=== PATIENT | male | born 1985 | race Caucasian/White ===

== ENCOUNTER 2018-01-23 10:36 | Emergency (ER) | payer OTHER ==
[2018-01-23 10:48] VITALS: BP 133/84
--- NOTE | 2018-01-23 10:59 | ER Document Report ---
HPI - HPI Patient complains to provider of: Left hand injury Pain Level: 4 Context: Patient is a 33-year-old male complaining of pain to his left hand. Patient was getting out of his dump truck when he slipped and instinctively reached back to catch himself on the truck, striking the back of his left hand on the truck door. Patient has pain and swelling to the mid volar left hand. Pain with moving his left middle and ring fingers Associated Symptoms: None Exacerbated by: Movement Relieved by: Denies - ROS Systems Reviewed and Negative: Yes All other systems reviewed and negative Past Medical History - General Information source: Patient - Social History Smoking Status: Current Every Day Smoker Frequency of alcohol use: Social Drug Abuse: None Lives with: Alone Family History: Reviewed & Not Pertinent - Medical History Medical History: Negative Vertical Provider Document - CONSTITUTIONAL Agree With Documented VS: Yes Exam Limitations: No Limitations - INFECTION CONTROL TRAVEL OUTSIDE OF THE [place] IN LAST 30 DAYS: No - HEENT HEENT: Atraumatic, PERRLA - NECK Neck: Normal Inspection, Supple - RESPIRATORY Respiratory: Breath Sounds Normal, No Respiratory Distress - MUSCULOSKELETAL/EXTREMETIES Musculoskeletal/Extremeties: Tender - Left dorsal hand with focal tenderness and swelling. Abrasion to mid hand - NEURO Level of Consciousness: Awake, Alert, Appropriate Motor/Sensory: No Motor Deficit - DERM Integumentary: Warm, Dry Notes: Abrasion noted to left mid hand Course - Re-evaluation Re-evalutation: 01/23/18 11:12 X-rays negative for fracture. These results reviewed with patient. Wound cleansed and dressing applied. Christopher wrap applied after dressing. I estimate there is LOW risk for OPEN FRACTURE, COMPARTMENT SYNDROME, ACUTE TENDON RUPTURE, or NEUROVASCULAR INJURY thus I consider the discharge disposition reasonable. I have reevaluated this patient multiple times and no significant life threatening changes are noted. The patient and I have discussed the diagnosis and risks, and we agree with discharging home to closely follow-up with their primary doctor or the referral orthopedist with the understanding that symptoms and presentations can change. We also discussed returning to the Emergency Department immediately if new or worsening symptoms occur. We have discussed the symptoms which are most concerning (e.g., changing or worsening pain, numbness, weakness) that necessitate immediate return - Vital Signs Vital signs: Temp Pulse Resp BP Pulse Ox 98.6 F 87 16 133/84 H 97 01/23/18 10:47 01/23/18 10:47 01/23/18 10:47 01/23/18 10:47 01/23/18 10:47 Procedures - Immobilization Left hand Pre-Proc Neuro Vasc Exam: Normal Immobilizer type: Christopher wrap Performed by: PCT Post-Proc Neuro Vasc Exam: Normal Alignment checked and good: Yes Discharge - Discharge Clinical Impression: Contusion of left hand Qualifiers: Encounter type: initial encounter Qualified Code(s): S60.222A - Contusion of left hand, initial encounter Condition: Stable Disposition: HOME, SELF-CARE Instructions: Contusion ([facility]), Abrasions ([facility]), Soap Cleansing ([facility]), Antibiotic Ointment Protection ([facility]), Christopher Wrap ([facility]), Ice & Elevation ([facility]), Ibuprofen (General) ([facility]) Additional Instructions: Your x-rays negative for fracture. Keep the abrasion clean using antibacterial soap and water and antibiotic ointment protection Christopher ice and elevate the injured hand as much as possible Ibuprofen for swelling and discomfort Follow-up with your primary care if pain persists Return to ER for any worsening of your status Prescriptions: Ibuprofen [Motrin 800 Mg Tablet] 800 mg PO Q6H #20 tablet Forms: Return to Work
--- NOTE | 2018-01-23 11:22 | RADIOLOGY REPORT (SQ) ---
EXAM DESCRIPTION: HAND LEFT 3 VIEWS COMPLETED DATE/TIME: 01/23/2018 11:11 am REASON FOR STUDY: pain left hand, hit hand on dump truck door COMPARISON: None. EXAM PARAMETERS: NUMBER OF VIEWS: Three views. TECHNIQUE: AP, lateral and oblique radiographic images acquired of the left hand. LIMITATIONS: None. FINDINGS: MINERALIZATION: Normal. BONES: No acute fracture or dislocation. No worrisome bone lesions. JOINTS: No effusions. SOFT TISSUES: No soft tissue swelling. No foreign body. OTHER: No other significant finding. IMPRESSION: NEGATIVE STUDY OF THE LEFT HAND. NO RADIOGRAPHIC EVIDENCE OF ACUTE INJURY. TECHNICAL DOCUMENTATION: JOB ID: [id number] [employer]- All Rights Reserved Reading location - IP/workstation name: BEL
== END 2018-01-23 11:28 | disposition home or self-care (01) ==
LOC: ER 10:36
DX: S60.222A Contusion of left hand, initial encounter (principal); M79.642 Pain in left hand; W22.8XXA Striking against or struck by other objects, initial encounter; Y93.89 Activity, other specified; Y99.0 Civilian activity done for income or pay; F17.200 Nicotine dependence, unspecified, uncomplicated
CPT/HCPCS: 99283

== ENCOUNTER 2020-05-02 01:02 | Emergency (ER) | payer OTHER ==
[2020-05-02] MEDS ORDERED: ONDANSETRON HCL INJ/PF 4 MG/2 ML SDV IV ONE (02:00)
--- NOTE | 2020-05-02 02:02 | ER Document Report ---
ED Medical Screen (RME) - General Chief Complaint: Abdominal Pain Stated Complaint: POSSIBLE HERNIA Time Seen by Provider: 05/02/20 01:56 Primary Care Provider: ANNIE THOMAS MD [Primary Care Provider] - Follow up as needed Notes: Patient states he picked this child up around 3 in the afternoon and felt a pop in his left groin area. Patient states that he has had left lower quadrant pain that radiates into the left testicle since then. Patient states that he has been nauseated and vomited 3 times. Patient states he occasionally breaks out in a sweat. Patient is concerned he may have an inguinal hernia. I have greeted and performed a rapid initial assessment of this patient. A comprehensive ED assessment and evaluation of the patient, analysis of test results and completion of the medical decision making process will be conducted by additional ED providers. TRAVEL OUTSIDE OF THE [place] IN LAST 30 DAYS: No - Related Data Allergies/Adverse Reactions: No Known Allergies Allergy (Unverified 01/23/18 10:38) Past Medical History Renal/ Medical History: Denies: Hx Peritoneal Dialysis Physical Exam - Vital signs Vitals: Temp Pulse Resp BP Pulse Ox 97.9 F 86 20 142/99 H 97 05/02/20 01:38 05/02/20 01:38 05/02/20 01:38 05/02/20 01:38 05/02/20 01:38 - General General appearance: Alert In distress: Mild Notes: Patient ambulates with a stooped gait, left lower pelvic, left inguinal tenderness Course - Vital Signs Vital signs: Temp Pulse Resp BP Pulse Ox 97.9 F 86 20 142/99 H 97 05/02/20 01:38 05/02/20 01:38 05/02/20 01:38 05/02/20 01:38 05/02/20 01:38 Doctor's Discharge - Discharge Referrals: ANNIE THOMAS MD [Primary Care Provider] - Follow up as needed
[2020-05-02 02:22] LABS: APPEARANCE,URINE CLEAR; BILIRUBIN,URINE NEGATIVE (NEGATIVE); COLOR,URINE YELLOW; GLUCOSE, URINE NEGATIVE (NEGATIVE); KETONES,URINE NEGATIVE (NEGATIVE); LEUKOCYTE ESTERASE,URINE NEGATIVE (NEGATIVE); NITRITE,URINE NEGATIVE (NEGATIVE); PROTEIN,URINE 30 mg/dL (NEGATIVE); URINE SPECIFIC GRAVITY 1.031; UROBILINOGEN,URINE NEGATIVE mg/dL (<2.0)
[2020-05-02 03:31] LABS: ABSOLUTE BASOPHILS # (AUTO) 0.1 10^3/uL (0.0-0.2); ABSOLUTE EOSINOPHILS # (AUTO) 0.1 10^3/uL (0.0-0.6); ABSOLUTE LYMPHOCYTES (AUTO) 1.6 10^3/uL (0.5-4.7); ABSOLUTE MONOCYTES (AUTO) 0.7 10^3/uL (0.1-1.4); ABSOLUTE NEUT (AUTO) 14.1 10^3/uL (1.7-8.2); BASOPHILS % (AUTO) 0.3 % (0-2); EOSINOPHILS % (AUTO) 0.4 % (0-6); HEMATOCRIT 46.2 % (37.9-51.0); HEMOGLOBIN 16.3 g/dL (13.5-17.0); LYMPHOCYTES % (AUTO) 9.8 % (13-45); MEAN CORPUSCULAR HEMOGLOBIN 30.2 pg (27.0-33.4); MEAN CORPUSCULAR HGB CONC 35.3 g/dL (32.0-36.0); MEAN CORPUSCULAR VOLUME 86 fl (80-97); MONOCYTES % (AUTO) 4.5 % (3-13); PLATELET COUNT 271 10^3/uL (150-450); RED CELL DISTRIBUTION WIDTH 13.4 % (11.5-14.0); TOTAL CELLS COUNTED % (AUTO) 100 %; WHITE BLOOD COUNT 16.6 10^3/uL (4.0-10.5)
--- NOTE | 2020-05-02 03:47 | RADIOLOGY REPORT (SQ) ---
EXAM: US Scrotum EXAM DATE/TIME: 05/02/2020 2:47 AM CLINICAL HISTORY: The patient is 35 years old and is Male; L groin/scrotal pain TECHNIQUE: Real-time ultrasound of the scrotum with color Doppler and image documentation. COMPARISON: No relevant prior studies available. FINDINGS: RIGHT TESTICLE: Unremarkable. No testicular mass. There is normal blood flow in the testicle, without evidence of testicular torsion. LEFT TESTICLE: Unremarkable. No testicular mass. There is normal blood flow in the testicle, without evidence of testicular torsion. EPIDIDYMIDES: Probable small epididymal appendage on the left, measuring 3 x 4 x 2 mm. The epididymides are otherwise unremarkable. SCROTUM: Unremarkable. No obvious hydrocele. INGUINAL: Images obtained in the left inguinal region demonstrate apparent peristalsing bowel. IMPRESSION: 1. Apparent peristalsing bowel in the left inguinal region, most compatible with a bowel containing inguinal hernia. CT would be helpful for further evaluation. 2. No evidence of testicular torsion.
[2020-05-02 03:52] LABS: ALBUMIN 5.2 g/dL (3.5-5.0); ALKALINE PHOSPHATASE 87 U/L (38-126); ANION GAP 12 (5-19); ASPARTATE AMINO TRANSFERASE 38 U/L (17-59); BILIRUBIN,DIRECT 0.4 mg/dL (0.0-0.4); BILIRUBIN,TOTAL 0.6 mg/dL (0.2-1.3); BLOOD UREA NITROGEN 20 mg/dL (7-20); CALCIUM 10.6 mg/dL (8.4-10.2); CARBON DIOXIDE 22 mmol/L (22-30); CHLORIDE 108 mmol/L (98-107); GLUCOSE 122 mg/dL (75-110); POTASSIUM 4.8 mmol/L (3.6-5.0); TOTAL PROTEIN 8.3 g/dL (6.3-8.2)
[2020-05-02] MEDS ORDERED: MORPHINE SULFATE 10 MG/ML INJ IV ONE (04:07)
[2020-05-02] MEDS ORDERED: NORMAL SALINE 1000 ML 1,000 ML IV ONE (04:14)
--- NOTE | 2020-05-02 04:16 | ER Document Report ---
ED GI/ - General Chief Complaint: Testicular Pain Stated Complaint: POSSIBLE HERNIA Time Seen by Provider: 05/02/20 01:56 Primary Care Provider: FRANCISCO J MEZA MD [ACTIVE STAFF] - Follow up in 1 week ANNIE THOMAS MD [NO LOCAL MD] - Follow up in 3-5 days Notes: Patient is a 35-year-old male who presents emergency department with a chief complaint of left groin pain. Patient states that he has history of a hernia, and around 3:00 in the afternoon he felt a pop in his left groin. Patient states that he is nauseated and vomited 3 times. He did have a bowel movement earlier, those prior to this episode. Patient has history of vasectomy and has had problems with his hernia in the past. TRAVEL OUTSIDE OF THE [place] IN LAST 30 DAYS: No - Related Data Allergies/Adverse Reactions: No Known Allergies Allergy (Unverified 01/23/18 10:38) Past Medical History - Social History Smoking Status: Never Smoker Frequency of alcohol use: None Family History: Reviewed & Not Pertinent Patient has homicidal ideation: No Renal/ Medical History: Denies: Hx Peritoneal Dialysis Review of Systems - Review of Systems Notes: REVIEW OF SYSTEMS: CONSTITUTIONAL : Denies recent illness. Denies recent unintentional weight loss. Denies fever, chills, or sweats. EENT: Denies eye, ear, throat, or mouth pain, discharge, or symptoms. Denies nasal or sinus congestion. CARDIOVASCULAR: Denies chest pain. RESPIRATORY: Denies shortness of breath, cough, congestion, difficulty breathing, or wheezing. GASTROINTESTINAL: See HPI. GENITOURINARY: Denies difficulty urinating, burning, blood in urine, urgency or frequency. MUSCULOSKELETAL: Denies neck and back pain. Denies joint pain or swelling. SKIN: Denies rash, itchiness, or lesions HEMATOLOGIC : Denies easy bruising or bleeding. LYMPHATIC: Denies swollen, painful, enlarged glands. NEUROLOGICAL: Denies no numbness or tingling denies weakness. Denies headache. Denies altered mental status. Denies alteration in speech. PSYCHIATRIC: Denies stress, anxiety, alteration in sleep patterns, or depression. All other systems reviewed and negative. Physical Exam - Vital signs Vitals: Temp Pulse Resp BP Pulse Ox 97.9 F 86 20 142/99 H 97 05/02/20 01:38 05/02/20 01:38 05/02/20 01:38 05/02/20 01:38 05/02/20 01:38 - Notes Notes: PHYSICAL EXAMINATION: GENERAL: Appears well, healthy, well-nourished, no acute distress. HEAD: Normocephalic, atraumatic. EYES: PERRL, conjunctiva normal, all extraocular movements intact, sclera nonicteric ENT: Moist mucous membranes. NECK: Supple, no noticeable swelling, redness, rash. Normal range of motion. LUNGS: Equal breath sounds bilaterally and clear to auscultation. No wheezes rales or rhonchi. CARDIOVASCULAR: S1-S2, regular rate, regular rhythm. Radial pulses 2+, normal. ABDOMEN: Normoactive bowel sounds. Soft, tender left lower quadrant, moderate guarding, no rebound tenderness, and no masses palpated. EXTREMITIES: Normal strength and range of motion, no pitting or edema. No cyanosis. NEUROLOGICAL: Moves all extremities upon command. Strength 5/5 in all extremities. PSYCH: Normal mood, normal affect. SKIN: Warm, dry. No rash, lesions, ulcerations noted. Normal skin turgor. Course - Re-evaluation Re-evalutation: 05/02/20 04:05 Scrotal ultrasound shows a hernia. Will order CT for further evaluation.Hematology shows a leukocytosis of 16,600 with a left shift. Creatinine is slightly elevated at 1.59. Patient will receive a liter of IV fluids. His calcium is also elevated. His protein and albumin are also elevated, this is most likely due to dehydration. Patient has small amount of blood in his urine. He also has protein in his urine, consistent with dehydration. 05/02/20 06:47 Patient states that the Dilaudid helped him a little bit, but when he went to CT, the pain got worse. Will order another dose of Dilaudid. 05/02/20 07:56 CT of the abdomen pelvis show left sided hydronephrosis with perinephric stranding. It appears that the patient recently passed a kidney stone. Patient has moderately sized bilateral fat inguinal hernias. No bowels are in the inguinal canal. Discussed this with the patient. He does still have some pain. We will give him a dose of Toradol. 05/02/20 08:20 Patient reports that he does feel better after receiving Toradol. Discussed with the patient possibly reducing the fat hernias here in the emergency department. He opted to wait until he went home and he was going to reduce them himself. Advised him to buy a truss and to follow-up with surgery on an outpatient basis. He is in agreement with this plan. We will also send him home with Percocet for his pain. Follow-up precautions were given. Verbal discharge instructions were given to the patient. They verbalized understanding. They are stable for discharge. - Vital Signs Vital signs: Temp Pulse Resp BP Pulse Ox 98.7 F 88 14 117/64 97 05/02/20 06:13 05/02/20 08:30 05/02/20 08:30 05/02/20 08:30 05/02/20 08:30 - Laboratory Result Diagrams: 05/02/20 03:17 05/02/20 03:17 Laboratory results interpreted by me: 05/02/20 05/02/20 05/02/20 01:40 03:17 03:17 WBC 16.6 H Lymph % (Auto) 9.8 L Absolute Neuts (auto) 14.1 H Seg Neutrophils % 85.0 H Chloride 108 H Creatinine 1.59 H Est GFR (MDRD) Non-Af 50 L Glucose 122 H Calcium 10.6 H Total Protein 8.3 H Albumin 5.2 H Urine Protein 30 H Urine Blood SMALL H Discharge - Discharge Clinical Impression: Kidney stone on left side, Left groin pain Condition: Stable Disposition: HOME, SELF-CARE Additional Instructions: You were seen today in the emergency department for hernia pain. You have fat hernias on both sides. As we discussed, by a truss to help keep your hernias from popping through. Please follow-up with the surgeon in regards to this visit. You also had a kidney stone that passed, also causing you to have pain. Please make sure you stay well-hydrated. Drink plenty of water to prevent kidney stones. Take the pain medication as needed. Prescriptions: Oxycodone HCl/Acetaminophen [Percocet 5-325 mg Tablet] 1 - 2 tab PO Q4H PRN #15 tablet PRN Reason: Forms: Return to Work Referrals: FRANCISCO J MEZA MD [ACTIVE STAFF] - Follow up in 1 week ANNIE THOMAS MD [NO LOCAL MD] - Follow up in 3-5 days
[2020-05-02] MEDS ORDERED: HYDROMORPHONE HCL INJ/PF 2 MG/ML AMPULE IV ONE ×3 (05:05→06:48)
--- NOTE | 2020-05-02 07:17 | RADIOLOGY REPORT (SQ) ---
EXAM: CT Abdomen and Pelvis With Intravenous Contrast EXAM DATE/TIME: 05/02/2020 6:31 AM CLINICAL HISTORY: The patient is 35 years old and is Male; eval hernia; incarcerated? TECHNIQUE: Axial computed tomography images of the abdomen and pelvis with intravenous contrast. Sagittal and coronal reformatted images were created and reviewed. Oral contrast was administered. This CT exam was performed using one or more of the following dose reduction techniques: automated exposure control, adjustment of the mA and/or kV according to patient size, and/or use of iterative reconstruction technique. COMPARISON: Scrotal ultrasound from 05/02/2020 FINDINGS: LUNG BASES: Minimal dependent densities in the lung bases. ABDOMEN: LIVER: There is mild diffuse fatty infiltration of the liver. No obvious liver mass. GALLBLADDER AND BILE DUCTS: Unremarkable. No calcified stones. No significant biliary ductal dilatation. PANCREAS: Unremarkable. No ductal dilation. No obvious mass. SPLEEN: Unremarkable. No splenomegaly. ADRENALS: Unremarkable. No adrenal nodules or masses identified. KIDNEYS AND URETERS: There is mild left-sided hydronephrosis and perinephric stranding. There is also asymmetric delayed enhancement and excretion of the left kidney. No renal or ureteral stones visualized. The right kidney is unremarkable. No solid renal mass. STOMACH AND BOWEL: PELVIS: APPENDIX: The appendix is unremarkable. BLADDER: Unremarkable. No obvious mass. REPRODUCTIVE: Calcifications noted in the prostate. ABDOMEN and PELVIS: INTRAPERITONEAL SPACE: Unremarkable. No free air. No significant fluid collection. BONES/JOINTS: No acute fracture. No dislocation. SOFT TISSUES: There are moderately sized bilateral fat-containing inguinal hernias. There is no bowel extending into these hernias. VASCULATURE: Unremarkable. No abdominal aortic aneurysm. LYMPH NODES: No significant lymph node enlargement. IMPRESSION: 1. Mild left-sided hydronephrosis with perinephric stranding and delayed enhancement of the left kidney. No renal or ureteral stones visualized. Findings are suspicious for a recently passed stone. Pyelonephritis is not completely excluded. 2. Moderately sized bilateral fat-containing inguinal hernias. There is no bowel extending into these hernias.
[2020-05-02] MEDS ORDERED: KETOROLAC TROMETHAMINE INJ/PF 30 MG/1 ML SDV IV ONE (07:47)
[2020-05-02 08:31] VITALS: BP 117/64
== END 2020-05-02 08:30 | disposition home or self-care (01) ==
LOC: ER 01:02
DX: N20.0 Calculus of kidney (principal); K40.90 Unilateral inguinal hernia, without obstruction or gangrene, not specified as recurrent; R10.32 Left lower quadrant pain; N50.812 Left testicular pain; R11.2 Nausea with vomiting, unspecified; Z98.52 Vasectomy status
CPT/HCPCS: 99285; 96361; 96374; 96375; 36415; 85025; 80053; 81001; 76870; 93976; 74177; J1885; J2270; J1170; J2405; J7030